=== PATIENT | female | born 1940 | race Caucasian/White ===

== ENCOUNTER 2017-11-11 09:13 | Emergency (ER) | payer MEDICARE ==
[~2017-11-11] VITALS: Ht 162.6 cm; Wt 56.0 kg
[2017-11-11 10:23] LABS: INFLUENZA A NONE DETECTED (NONE DETECT); INFLUENZA B NONE DETECTED (NONE DETECT)
[2017-11-11 10:56] LABS: HEMATOCRIT 41.2 % (37.0-47.0); HEMOGLOBIN 12.7 g/dl (12.0-16.0); IMMATURE GRANULOCYTES 0.3 % (0.0-1.0); MEAN CELL VOLUME 99.8 fL CALC (80.0-100.0); MEAN CORPUSCULAR HGB 30.8 pG CALC (26.0-32.0); MEAN CORPUSCULAR HGB CONC 30.8 g/L CALC (32.0-36.0); NEUT# 7.56 thou/uL (2.00-7.15); RED BLOOD COUNT 4.13 mill/uL (4.20-5.60); RED CELL DISTRI WIDTH 13.2 % (11.5-15.5)
[2017-11-11] MEDS ORDERED: ZITHROMAX250 MG PO (11:04)
[2017-11-11] MEDS ORDERED: TORADOL PO (11:04)
[2017-11-11 11:23] VITALS: BP 125/66
[2017-11-13] MEDS ORDERED: LEVAQUIN500 MG PO ×2 (09:41)
== END 2017-11-11 11:28 | disposition home or self-care (01) ==
LOC: ED 09:13
PROVIDERS: Emergency Medicine
DX: J06.9 Acute upper respiratory infection, unspecified (principal); J44.9 Chronic obstructive pulmonary disease, unspecified; K21.9 Gastro-esophageal reflux disease without esophagitis

== ENCOUNTER 2022-09-21 14:43 | Emergency (ER) | payer MEDICARE ==
[~2022-09-21] VITALS: Ht 162.6 cm; Wt 58.2 kg
[~2022-09-21 14:43] MED LIST: LEVAQUIN500 MG PO; TORADOL PO; ZITHROMAX250 MG PO
[2022-09-21] MEDS ORDERED: TAM75CAP PO (16:06)
[2022-09-21] MEDS ORDERED: TOBRADEX 2.5 ML OD (16:17)
[2022-09-21] MEDS ORDERED: PROAIR HFA IN (16:50)
[2022-09-21 17:10] VITALS: BP 135/89
== END 2022-09-21 17:10 | disposition home or self-care (01) ==
LOC: ED 14:43
DX: J10.1 Influenza due to other identified influenza virus with other respiratory manifestations (principal); H10.9 Unspecified conjunctivitis; J44.9 Chronic obstructive pulmonary disease, unspecified; Z20.822 Contact with and (suspected) exposure to COVID-19

== ENCOUNTER 2023-11-06 14:30 | Emergency (ER) | payer MEDICARE ==
[~2023-11-06] VITALS: Ht 162.6 cm; Wt 56.0 kg
[~2023-11-06 14:30] MED LIST changes: +PROAIR HFA IN; +TAM75CAP PO; +TOBRADEX 2.5 ML OD
[2023-11-06 14:51] VITALS: BP 166/78
[2023-11-06] MEDS ORDERED: PANTOPRAZOLE SO40 M1 PO (14:58)
[2023-11-06] MEDS ORDERED: LOSARTAN POTAS100 MG PO (14:59)
[2023-11-06 15:00] VITALS: BP 123/100
[2023-11-06] MEDS ORDERED: ROSUVASTATIN CA20 MG (15:00)
[2023-11-06] MEDS ORDERED: HYDROCHLOROT25 MG PO (15:00)
[2023-11-06] MEDS ORDERED: AZITHROMYCIN500 MG PO (15:00)
[2023-11-06] MEDS ORDERED: NIFEDIPINE ER30 MG PO (15:00)
[2023-11-06] MEDS ORDERED: ALLERGY RE50 MCG/ACT (15:02)
[2023-11-06] MEDS ORDERED: ASPIRINCHW 81MG PO (15:03)
[2023-11-06] MEDS ORDERED: DICLOFENAC SODI75 MG PO (15:04)
[2023-11-06] MEDS ORDERED: MIRALAX17 GM (15:04)
[2023-11-06] MEDS ORDERED: OS-CAL 500500 M1 PO (15:05)
[2023-11-06] MEDS ORDERED: B121000 MC1 (15:05)
[2023-11-06] MEDS ORDERED: [UNRECOGNIZED DRUG - OTHER] (15:05)
[2023-11-06 15:14] VITALS: BP 151/75
[2023-11-06 15:15] LABS: BASO% 0.9 % (0-3); EOS% 2.4 % (0-8); HEMOGLOBIN 13.8 g/dl (12.0-16.0); LYMPH% 27.8 % (15-41); MEAN CELL VOLUME 94.8 fL CALC (80.0-100.0); MEAN CORPUSCULAR HGB 31.2 pG CALC (26.0-32.0); MEAN CORPUSCULAR HGB CONC 32.9 g/dL CAL (32.0-36.0); MONO% 12.5 % (2-13); NEUT# 2.53 thou/uL (2.00-7.15); NEUT% 56.4 % (42-76); RED BLOOD COUNT 4.43 mill/uL (4.20-5.60); RED CELL DISTRI WIDTH 11.9 % (11.5-15.5)
[2023-11-06 15:34] LABS: ALKALINE PHOSPHATASE 87 u/l (38-126); ANION GAP 14 (6-22 (CALC)); BILIRUBIN, TOTAL 0.4 mg/dL (0.02-1.3); BUN 21 mg/dL (8-23); BUN/CREATININE RATIO 21 (12-20 (CALC)); CARBON DIOXIDE 25 mmol/l (22-30); CHLORIDE 107 mmol/l (95-108); GFR FOR AFR.AMER. > 60 ML/MIN (>=60 (CALC)); GFR OTHER RACES 53 ML/MIN (>=60 (CALC)); SGOT/AST 34 u/l (9-36); SODIUM 141 mmol/l (137-146)
[2023-11-06] MEDS ORDERED: HYZAAR1 TA2 PO (16:02)
[2023-11-06 16:03] VITALS: BP 160/85
[2023-11-06] MEDS ORDERED: LOSARTAN Potassium 50 MG/TAB PO ONE (16:10)
[2023-11-06 16:30] VITALS: BP 160/85
== END 2023-11-06 16:30 | disposition home or self-care (01) ==
LOC: ED 14:30
PROVIDERS: Family Medicine
DX: I10 Essential (primary) hypertension (principal); Z20.822 Contact with and (suspected) exposure to COVID-19

== ENCOUNTER 2023-11-09 09:02 | Emergency (ER) | payer MEDICARE ==
[~2023-11-09] VITALS: Ht 162.6 cm; Wt 56.2 kg
[~2023-11-09 09:02] MED LIST changes: +ALLERGY RE50 MCG/ACT; +ASPIRINCHW 81MG PO; +AZITHROMYCIN500 MG PO; +B121000 MC1; +DICLOFENAC SODI75 MG PO; +HYDROCHLOROT25 MG PO; +HYZAAR1 TA2 PO; +LOSARTAN POTAS100 MG PO; +MIRALAX17 GM; +NIFEDIPINE ER30 MG PO; +OS-CAL 500500 M1 PO; +PANTOPRAZOLE SO40 M1 PO; +ROSUVASTATIN CA20 MG; +[UNRECOGNIZED DRUG - OTHER]
[2023-11-09 09:08] VITALS: BP 156/82
[2023-11-09 09:15] VITALS: BP 145/83
[2023-11-09 09:30] VITALS: BP 129/72
[2023-11-09 09:53] LABS: EOS% 3.1 % (0-8); HEMATOCRIT 42.1 % (37.0-47.0); HEMOGLOBIN 13.8 g/dl (12.0-16.0); LYMPH% 31.1 % (15-41); MEAN CELL VOLUME 93.8 fL CALC (80.0-100.0); MEAN CORPUSCULAR HGB 30.7 pG CALC (26.0-32.0); MEAN CORPUSCULAR HGB CONC 32.8 g/dL CAL (32.0-36.0); MONO% 13.9 % (2-13); NEUT# 2.13 thou/uL (2.00-7.15); NEUT% 50.9 % (42-76); RED BLOOD COUNT 4.49 mill/uL (4.20-5.60); RED CELL DISTRI WIDTH 11.8 % (11.5-15.5)
[2023-11-09 09:56] VITALS: BP 162/73
[2023-11-09 10:08] LABS: ALBUMIN 4.6 g/dL (3.2-5.0); ALKALINE PHOSPHATASE 75 u/l (38-126); ANION GAP 11 (6-22 (CALC)); BUN 20 mg/dL (8-23); BUN/CREATININE RATIO 22 (12-20 (CALC)); CARBON DIOXIDE 30 mmol/l (22-30); CHLORIDE 104 mmol/l (95-108); CREATININE 0.9 mg/dL (0.5-1.0); GFR FOR AFR.AMER. > 60 ML/MIN (>=60 (CALC)); GFR OTHER RACES 60 ML/MIN (>=60 (CALC)); POTASSIUM 4.2 mmol/l (3.5-5.1); SGOT/AST 33 u/l (9-36); SODIUM 140 mmol/l (137-146); TOTAL PROTEIN 7.4 g/dL (6.3-8.2)
[2023-11-09 10:10] LABS: BILIRUBIN, TOTAL 0.6 mg/dL (0.02-1.3)
[2023-11-09 10:30] VITALS: BP 130/65
[2023-11-09 11:16] VITALS: BP 130/68
== END 2023-11-09 11:30 | disposition home or self-care (01) ==
LOC: ED 09:02
PROVIDERS: Family Medicine
DX: I10 Essential (primary) hypertension (principal)